=== PATIENT | male | born 1980 | race American Indian/Alaskan Native ===

== ENCOUNTER 2019-09-21 14:04 | Emergency (ER) | payer OTHER ==
[2019-09-21] MEDS ORDERED: NALOXONE 0.4 MG/1 ML INJ ONE (14:14)
[2019-09-21 14:32] VITALS: BP 131/86
--- NOTE | 2019-09-21 14:42 | Emergency Department Report ---
ED Altered Mental Status HPI - General Chief Complaint: Altered Mental Status Stated Complaint: UNRESPONSIVE Time Seen by Provider: 09/21/19 14:17 Source: EMS Mode of arrival: Stretcher Limitations: Altered Mental Status - History of Present Illness Initial Comments: 39-year-old male with no known past medical history as per girlfriend/mother of his children presents to the hospital with alteration in mental status. Patient states lasting member was mowing the lawn and then was found unresponsive in the bathroom floor by his children. Upon EMS arrival patient was unresponsive. Patient received 2 mg of intranasal Narcan with no response. Patient did receive 2 mg IV Narcan. Patient having intermittent periods of unresponsiveness even to painful stimuli when he cries and repeatedly states I love you. Accu- Chek within normal range - Related Data Allergies Allergy/AdvReac Type Severity Reaction Status Date / Time No Known Allergies Allergy Unverified 09/21/19 14:38 ED Review of Systems ROS: Stated complaint: UNRESPONSIVE Other details as noted in HPI Comment: Unobtainable due to pts medical conditions ED Past Medical Hx - Past Medical History Previous Medical History?: No - Surgical History Past Surgical History?: No ED Physical Exam - General Limitations: Altered Mental Status - Other Other exam information: General: Unresponsive Head: Atraumatic Eyes: normal appearance, pupils equal reactive to light ENT: Moist mucous membranes, no tongue laceration Neck: Normal appearance, no midline tenderness Chest: Clear to auscultation bilaterally CV: Regular rate and rhythm Abdomen: Soft, normal bowel sounds, nontender, nondistended, no rebound or guarding Back: Normal inspection Extremity: Normal inspection, full range of motion Neuro: Periods of unresponsiveness and labile mood Psych: Labile mood Skin: No rash, ED Course Vital Signs 09/21/19 09/21/19 09/21/19 14:08 14:16 14:25 Temperature 98.6 F Pulse Rate 77 98 H 102 H Respiratory 9 L 21 13 Rate Blood Pressure 155/90 Blood Pressure 142/87 [Right] O2 Sat by Pulse 99 99 100 Oximetry 09/21/19 09/21/19 14:27 14:30 Temperature 98.6 F Pulse Rate 76 76 Respiratory 13 13 Rate Blood Pressure 142/87 131/86 Blood Pressure [Right] O2 Sat by Pulse 100 100 Oximetry - Reevaluation(s) Reevaluation #1: 09/21/19 15:25 pt is now awake and refusing all care. He is alert at this time. Still does not know what happened. States he was mowing the lawn and did not know how he got here for I spoke to his girlfriend. She will talk to him and give feedback regarding is mental status (to see if his at baseline) and if she feels comfortable taking him. 09/21/19 15:42 After discussion with on the phone states that patient is acting appropriately. Patient is alert and oriented x3. We sent patient to the restroom to give us a urine sample and he brought back obvious cold water in the sample. 09/21/19 15:52 - Lab Data Lab Results 09/21/19 Range/Units 14:27 POC Glucose 100 (70-105) - EKG Data -: EKG Interpreted by Me EKG shows normal: sinus rhythm, ST-T waves (no stemi) Rate: normal - Radiology Data Radiology results: report reviewed CT HEAD WITHOUT CONTRAST INDICATION / CLINICAL INFORMATION: Altered mental status. Found down on floor. TECHNIQUE: Axial imaging performed from the skull apex through the skull base without the use of contrast. Sagittal and coronal reformatted images. All CT scans at this location are performed using CT dose reduction for ALARA by means of automated exposure control. COMPARISON: None available. FINDINGS: CEREBRAL PARENCHYMA: No significant abnormality. No acute territorial infarct. HEMORRHAGE: None. EXTRA-AXIAL SPACES: Normal in size and morphology for the patient's age. VENTRICULAR SYSTEM: Normal in size and morphology for the patient's age. MIDLINE SHIFT OR HERNIATION: None. CEREBELLUM / BRAINSTEM: No significant abnormality. CALVARIUM: No significant abnormality. ORBITS: Normal as visualized. PARANASAL SINUSES / MASTOID AIR CELLS: Normal as visualized. SOFT TISSUES of HEAD: No significant abnormality. ADDITIONAL FINDINGS: None. IMPRESSION: Cranial CT scan within normal limits. CHEST 1 VIEW INDICATION: Altered mental status, patient found on ground. COMPARISON: None FINDINGS: Support devices: None. Heart: Within normal limits. Lungs/Pleura: No acute air space or interstitial disease. Additional findings: None. IMPRESSION: No acute findings. CT CERVICAL SPINE WITHOUT CONTRAST INDICATION: Altered mental status, found on floor, neck injury. TECHNIQUE: Axial imaging performed through the cervical spine without the use of contrast. Sagittal and coronal reconstructed images were also reviewed. All CT scans at this location are performed using CT dose reduction for ALARA by means of automated exposure control. COMPARISON: None FINDINGS: Alignment: Spinal alignment is normal. Bones: There is no acute osseous abnormality. No significant degenerative disc disease or facet arthropathy. Soft tissues: No acute or significant incidental soft tissue abnormality. IMPRESSION: No acute abnormality. - Medical Decision Making Patient had alteration mental status with unknown cause Patient exhibiting labile mood after Narcan administration. When patient became alert he went to speak to his /girlfriend immediately. He refused blood draw and gave us water instead of a urine sample. Highly suspect there is some psychiatric condition going and patient does not want us to investigate for additional substances in his system. However, since can verify the patient is alert and oriented x3 and patient refuses care he will be discharged into her care to sign out AGAINST MEDICAL ADVICE. HE does not endorse suicidal ideation - Differential Diagnosis Encephalopathy, drug abuse, overdose Critical Care Time: No Critical care attestation.: If time is entered above; I have spent that time in minutes in the direct care of this critically ill patient, excluding procedure time. ED Disposition Clinical Impression: Altered awareness, transient Disposition: [id number] LEFT AGAINST MED ADVICE Is pt being admited?: No Condition: Stable Instructions: Altered Mental Status (ED) Additional Instructions: You have refused work-up and care in the ER and are signing out AGAINST MEDICAL ADVICE. Follow-up with your doctor or doctor/clinic provided. Return if symptoms worsen as indicated by your discharge instructions. Referrals: PRIMARY MD MILAN [Primary Care Provider] - 3-5 Days KIRILL DOYLE MD [Staff Physician] - 3-5 Days [facility] [Outside] - 3-5 Days Forms: AMA Form Time of Disposition: 15:45
--- NOTE | 2019-09-21 15:08 | Cat Scan Report ---
CT HEAD WITHOUT CONTRAST INDICATION / CLINICAL INFORMATION: Altered mental status. Found down on floor. TECHNIQUE: Axial imaging performed from the skull apex through the skull base without the use of cont rast. Sagittal and coronal reformatted images. All CT scans at this location are performed using CT dose reduction for ALARA by means of automated exposure control. COMPARISON: None available. FINDINGS: CEREBRAL PARENCHYMA: No significant abnormality. No acute territorial infarct. HEMORRHAGE: None. EXTRA-AXIAL SPACES: Normal in size and morphology for the patient's age. VENTRICULAR SYSTEM: Normal in size and morphology for the patient's age. MIDLINE SHIFT OR HERNIATION: None. CEREBELLUM / BRAINSTEM: No significant abnormality. CALVARIUM: No significant abnormality. ORBITS: Normal as visualized. PARANASAL SINUSES / MASTOID AIR CELLS: Normal as visualized. SOFT TISSUES of HEAD: No significant abnormality. ADDITIONAL FINDINGS: None. IMPRESSION: Cranial CT scan within normal limits. Signer Name: Deshaun Martin Jr, MD Signed: 09/21/2019 3:04 PM Workstation Name: [id number]
--- NOTE | 2019-09-21 15:19 | Cat Scan Report ---
CT CERVICAL SPINE WITHOUT CONTRAST INDICATION: Altered mental status, found on floor, neck injury. TECHNIQUE: Axial imaging performed through the cervical spine without the use of contrast. Sagittal and coronal reconstructed images were also reviewed. All CT scans at this location are performed us ing CT dose reduction for ALARA by means of automated exposure control. COMPARISON: None FINDINGS: Alignment: Spinal alignment is normal. Bones: There is no acute osseous abnormality. No significant degenerative disc disease or facet art hropathy. Soft tissues: No acute or significant incidental soft tissue abnormality. IMPRESSION: No acute abnormality. Signer Name: Deshaun Martni Jr, MD Signed: 09/21/2019 3:14 PM Workstation Name: [id number]
--- NOTE | 2019-09-21 15:24 | XRay Report ---
CHEST 1 VIEW INDICATION: Altered mental status, patient found on ground. COMPARISON: None FINDINGS: Support devices: None. Heart: Within normal limits. Lungs/Pleura: No acute air space or interstitial disease. Additional findings: None. IMPRESSION: No acute findings. Signer Name: Deshaun Martin Jr, MD Signed: 09/21/2019 3:19 PM Workstation Name: [id number]
== END 2019-09-21 15:55 | disposition left against medical advice (07) ==
LOC: ED 14:04
DX: R40.4 Transient alteration of awareness (principal)
CPT/HCPCS: 70450; 71045; 72125; 82962; 93005; J2310